=== PATIENT | female | born 1980 | race Caucasian/White ===

== ENCOUNTER 2019-07-08 08:27 | Day surgery (SDC) | payer BC ==
[~2019-07-08 08:27] MED LIST: CEPH500 PO; CYCL10 PO; PRED10 PO; RANI150 PO
== END 2019-07-08 23:03 | disposition home or self-care (01) ==
LOC: MOI RAD 08:27 → MOI MRI 10:00 → MOI RAD 23:03 → MOI MRI 08-07 09:00
DX: M24.851 Other specific joint derangements of right hip, not elsewhere classified (principal); M67.451 Ganglion, right hip
CPT/HCPCS: 20610; 73722; 77002; A9577; Q9967

== ENCOUNTER 2021-03-24 12:24 | Day surgery (SDC) | payer BC ==
[2021-03-22 18:00] LABS: BASOPHILS ABSOLUTE AUTO 0.06 K/mm3 (0.00-0.23); BASOPHILS PERCENT AUTO 1 % (0-2); EOSINOPHILS ABSOLUTE AUTO 0.18 K/mm3 (0.00-0.68); EOSINOPHILS PERCENT AUTO 2 % (0-6); Hematocrit 41.1 % (33.0-51.0); Hemoglobin 14.3 g/dL (11.5-16.0); IMMATURE GRAN ABSOLUTE AUTO 0.03 K/mm3 (0.00-0.10); IMMATURE GRAN PERCENT AUTO 0 % (0-1); LYMPHOCYTES ABSOLUTE AUTO 2.19 K/mm3 (0.84-5.20); LYMPHOCYTES PERCENT AUTO 28 % (21-46); MONOCYTES ABSOLUTE AUTO 0.58 K/mm3 (0.16-1.47); MONOCYTES PERCENT AUTO 7 % (4-13); Mean Corpuscular HGB 31.4 pg (26.0-34.0); Mean Corpuscular HGB Conc 34.8 g/dL (31.5-36.5); Mean Corpuscular Volume 90 fL (80-100); Mean Platelet Volume 10.8 fL (9.1-12.4); NEUTROPHILS ABSOLUTE AUTO 4.78 K/mm3 (1.96-9.15); NEUTROPHILS PERCENT AUTO 61 % (41-73); Platelet Count 275 K/mm3 (150-400); RDW Coefficient Variation 11.8 % (11.7-14.2); RDW Standard Deviation 38.9 fL (35.1-46.3); Red Blood Cell Count 4.56 M/mm3 (3.80-5.20); White Blood Cell Count 7.82 K/mm3 (4.00-11.30)
[~2021-03-24] VITALS: Ht 157.5 cm; Wt 54.4 kg
[2021-03-24] MEDS ORDERED: Vitamin B-121000 MCG PO (12:50)
[2021-03-24] MEDS ORDERED: [UNRECOGNIZED DRUG - OTHER] (12:52)
[2021-03-24] MEDS ORDERED: C COMPLEX1000 M1 PO (12:53)
--- NOTE | 2021-03-24 13:19 | NUR ---
Ambulatory in Day Surgery Patient confirms NPO status and agrees with scheduled surgery. Pre-Op teaching done. Pt verbalizes understanding. History, Chart, Medications and Allergies reviewed before start of procedure.
--- NOTE | 2021-03-24 18:36 | NUR ---
LATE NOTE, UNABLE TO DOCUMENT ON INTERVENTIONS. PERIPHERAL IV SITE CLEAR AND PATENT ON DC FROM PACU PATIENT AWAKE VSS ABLE TO MOVE ALL EXTREMITIES. 4 SM ABD INCISION CLEAR. [place] PAD WITH SCANT PINK DRAINAGE.
[2021-03-25 04:16] LABS: BASOPHILS ABSOLUTE AUTO 0.04 K/mm3 (0.00-0.23); BASOPHILS PERCENT AUTO 0 % (0-2); EOSINOPHILS PERCENT AUTO 0 % (0-6); Hemoglobin 12.8 g/dL (11.5-16.0); IMMATURE GRAN ABSOLUTE AUTO 0.02 K/mm3 (0.00-0.10); IMMATURE GRAN PERCENT AUTO 0 % (0-1); LYMPHOCYTES ABSOLUTE AUTO 1.06 K/mm3 (0.84-5.20); LYMPHOCYTES PERCENT AUTO 10 % (21-46); MONOCYTES ABSOLUTE AUTO 0.81 K/mm3 (0.16-1.47); MONOCYTES PERCENT AUTO 8 % (4-13); Mean Corpuscular HGB Conc 35.6 g/dL (31.5-36.5); Mean Corpuscular Volume 90 fL (80-100); Mean Platelet Volume 10.8 fL (9.1-12.4); NEUTROPHILS ABSOLUTE AUTO 8.35 K/mm3 (1.96-9.15); NEUTROPHILS PERCENT AUTO 81 % (41-73); Platelet Count 221 K/mm3 (150-400); RDW Coefficient Variation 11.9 % (11.7-14.2); RDW Standard Deviation 38.7 fL (35.1-46.3); White Blood Cell Count 10.28 K/mm3 (4.00-11.30)
--- NOTE | 2021-03-25 05:57 | NUR ---
SHIFT SUMMARY: ANGELIA IS A&OX4. VSS, NO ACUTE EVENTS OVERNIGHT. SHE REPORTS ADEQUATE PAIN CONTROL WITH ONE TABLET OF 5 MG PERCOCET. SHE IS INDEPENDENT IN THE ROOM, VOIDING WITHOUT DIFFICULTY SINCE REMOVAL OF THE SWEET. SHE IS TOLERATING PO INTAKE WELL, IVs TO BILATERAL ARMS PATENT, SALINE LOCKED. SHE IS LYING IN BED WITH THE CALL LIGHT IN REACH. WILL REPORT TO DAY SHIFT RN.
[2021-03-25] MEDS ORDERED: DULCOLAX400 MG/5 M PO (11:53)
[2021-03-25] MEDS ORDERED: ESTR2 PO (11:53)
[2021-03-25] MEDS ORDERED: Percocet 5-3251 EACH PO (11:54)
[2021-03-25] MEDS ORDERED: PROM25 PO (11:54)
[2021-03-25] MEDS ORDERED: SIME80CH PO (11:55)
[2021-03-25] MEDS ORDERED: Senno8.6 MG PO (11:55)
--- NOTE | 2021-03-25 13:03 | NUR ---
DISCHARGE SUMMARY PT LEFT FLOOR VIA WC WITH NG TO GO HOME WITH , WITH ALL PERSONAL POSSESSIONS INCLUDING DC PACKET AND SCRIPTS. DC INSTRUCTIONS PROVIDED. PT REP UNDERSTANDING THOSE INSTRUCTIONS. 2 IVS DC'D.
== END 2021-03-25 12:57 | disposition home or self-care (01) ==
LOC: ORSCMMR 12:24 → ORD 13:45 → SURS 17:50 → ORSCMMR 03-25 12:57
PROVIDERS: Obstetrics & Gynecology
PROC: 0U5F4ZZ Destruction of Cul-de-sac, Percutaneous Endoscopic Approach (ICD-10-PCS; principal; 2021-03-24 13:45)
PROC: 0UT24ZZ Resection of Bilateral Ovaries, Percutaneous Endoscopic Approach (ICD-10-PCS; principal; 2021-03-24 13:45)
PROC: 0UT74ZZ Resection of Bilateral Fallopian Tubes, Percutaneous Endoscopic Approach (ICD-10-PCS; principal; 2021-03-24 13:45)
PROC: 8E0W4CZ Robotic Assisted Procedure of Trunk Region, Percutaneous Endoscopic Approach (ICD-10-PCS; principal; 2021-03-24 13:45)
PROC: 0UT94ZZ Resection of Uterus, Percutaneous Endoscopic Approach (ICD-10-PCS; principal; 2021-03-24 13:45)
DX: N94.0 Mittelschmerz (principal); N94.6 Dysmenorrhea, unspecified; N94.10 Unspecified dyspareunia; N80.3 Endometriosis of pelvic peritoneum; R10.2 Pelvic and perineal pain; D25.9 Leiomyoma of uterus, unspecified; K66.0 Peritoneal adhesions (postprocedural) (postinfection)
CPT/HCPCS: 58571; 58662; S2900; 36415; 84702; 85025; 86850; 86900; 86901; 88307; A9270; J0690; J1100; J1885; J2250; J2405; J2550; J2704; J2765; J3010; J7120